=== PATIENT | female | born 1990 | race African-American/Black ===

== ENCOUNTER 2017-06-20 07:27 | Emergency (ER) | payer SELFPAY ==
[~2017-06-20] VITALS: Ht 172.7 cm; Wt 110.0 kg
[2017-06-20] MEDS ORDERED: DEXAMETHASONE 10 MG/ML VIAL IM ONE (09:15)
[2017-06-20] MEDS ORDERED: KETOROLAC 60MG/2ML VIAL IM ONE (09:15)
[2017-06-20] MEDS ORDERED: PENICILLIN G BENZATHINE 1,200,000 UNITS/2ML SYR IM ONE (09:15)
[2017-06-20 10:24] VITALS: BP 136/83
== END 2017-06-20 10:28 | disposition home or self-care (01) ==
LOC: ER 07:55
DX: J02.0 Streptococcal pharyngitis (principal); Z98.890 Other specified postprocedural states
CPT/HCPCS: 87070; 87430; 96372; 99284; J0561; J1100; J1885; Z7610